=== PATIENT | female | born 1975 | race Hispanic/Latino ===

== ENCOUNTER 2020-05-10 17:46 | Emergency (ER) | payer SELFPAY ==
[2020-05-10 18:23] VITALS: BP 133/89
[2020-05-10] MEDS ORDERED: IBUPROFEN 600 MG TAB PO ONE (19:13)
--- NOTE | 2020-05-10 19:14 | Event Note ---
ED Screening Note Date of service: 05/10/20 Time: 19:13 ED Screening Note: 44-year-old female presents to the emergency room complaining of right ankle left hip and lower back pain status post fall today. Patient has had a hysterectomy This initial assessment/diagnostic orders/clinical plan/treatment(s) is/are subject to change based on patients health status, clinical progression and re- assessment by fellow clinical providers in the ED. Further treatment and workup at subsequent clinical providers discretion. Patient/guardian urged not to elope from the ED as their condition may be serious if not clinically assessed and managed. Initial orders include:
--- NOTE | 2020-05-10 20:19 | XRay Report ---
RIGHT ANKLE 3 VIEWS INDICATION / CLINICAL INFORMATION: rt injury COMPARISON: None available. FINDINGS: BONES / JOINT(S): No acute fracture or subluxation. No significant arthritis. SOFT TISSUES: There is soft tissue swelling over the lateral malleolus. ADDITIONAL FINDINGS: None. Signer Name: Ziyad Bell MD Signed: 05/10/2020 8:15 PM Workstation Name: [id number]
--- NOTE | 2020-05-10 20:19 | XRay Report ---
LEFT HIP 2 VIEWS INDICATION / CLINICAL INFORMATION: left hip pain COMPARISON: None available. FINDINGS: BONES / JOINT(S): No acute fracture or subluxation. No significant arthritis. SOFT TISSUES: No significant abnormality. ADDITIONAL FINDINGS: None. Signer Name: Ziyad Bell MD Signed: 05/10/2020 8:14 PM Workstation Name: [id number]
--- NOTE | 2020-05-10 20:20 | XRay Report ---
LUMBAR SPINE 3 VIEWS INDICATION: fall back pain COMPARISON: None. FINDINGS: There is no fracture, subluxation, or other acute radiographic abnormality of the lumbar spine. Signer Name: Ziyad Bell MD Signed: 05/10/2020 8:16 PM Workstation Name: [id number]
--- NOTE | 2020-05-10 21:17 | Emergency Department Report ---
ED Fall HPI - General Chief Complaint: Fall Stated Complaint: RT ANKLE Source: patient Mode of arrival: Wheelchair - History of Present Illness Initial Comments: 44-year-old female presents to the emergency room complaining of right ankle left hip and lower back pain status post fall today. Patient has had a hysterectomy -: This afternoon Fall From: standing When Fall Occurred: 1-3 hours [facility]OR OF [facility] C[facility] Loss of Consciousness: none Prolonged Down Time?: no Symptoms Prior to Fall: none Location: back Location - Extremities: Left: Thigh, Right: Ankle Severity scale (0 -10): 8 Quality: aching Associated Symptoms: denies - Related Data Previous Rx's Medication Instructions Recorded Last Taken Type Ibuprofen [Motrin 600 MG tab] 600 mg PO Q8H PRN #30 tablet 05/10/20 Unknown Rx Allergies Allergy/AdvReac Type Severity Reaction Status Date / Time Sulfa (Sulfonamide Allergy Unknown Verified 05/10/20 18:20 Antibiotics) ED Review of Systems ROS: Stated complaint: RT ANKLE Other details as noted in HPI ED Past Medical Hx - Medications Home Medications: Home Medications Medication Instructions Recorded Confirmed Last Taken Type Ibuprofen [Motrin 600 MG tab] 600 mg PO Q8H PRN #30 tablet 05/10/20 Unknown Rx ED Physical Exam - General Limitations: No Limitations ED Course Vital Signs 05/10/20 05/10/20 18:21 19:20 Temperature 97.9 F Pulse Rate 91 H Respiratory 20 18 Rate Blood Pressure 133/89 [Right] O2 Sat by Pulse 97 Oximetry ED Medical Decision Making - Radiology Data Radiology results: report reviewed Patient: ALYSON PHILIPPE MR#: [id number] : 1975 Acct:[id number] Age/Sex: 44 / F ADM Date: 05/10/20 Loc: ED Attending Dr: Ordering Physician: KATHRINE HIGHTOWER Date of Service: 05/10/20 Procedure(s): XR spine lumbosacral 2-3V Accession Number(s): [id number] cc: KATHRINE HIGHTOWER Fluoro Time In Minutes: LUMBAR SPINE 3 VIEWS INDICATION: fall back pain COMPARISON: None. FINDINGS: There is no fracture, subluxation, or other acute radiographic abnormality of the lumbar spine. Signer Name: Zyiad Bell MD Signed: 05/10/2020 8:16 PM Workstation Name: [id number] Transcribed By: Dictated By: Ziyad Bell MD Electronically Authenticated By: Ziyad Bell MD Signed Date/Time: 05/10/202015 DD/ 14 TD/TT: Patient: ALYSON PHILIPPE MR#: [id number] : 1975 Acct:[id number] Age/Sex: 44 / F ADM Date: 05/10/20 Loc: ED Attending Dr: Ordering Physician: KATHRINE HIGHTOWER Date of Service: 05/10/20 Procedure(s): XR hip 2-3V LT Accession Number(s): [id number] cc: KATHRINE HIGHTOWER Fluoro Time In Minutes: LEFT HIP 2 VIEWS INDICATION / CLINICAL INFORMATION: left hip pain COMPARISON: None available. FINDINGS: BONES / JOINT(S): No acute fracture or subluxation. No significant arthritis. SOFT TISSUES: No significant abnormality. ADDITIONAL FINDINGS: None. Signer Name: Ziyad Bell MD Signed: 05/10/2020 8:14 PM Workstation Name: [id number] Transcribed By: Dictated By: Ziyad Bell MD Electronically Authenticated By: Ziyad Bell MD Signed Date/Time: 05/10/202013 DD/ 13 TD/TT: Patient: ALYSON PHILIPPE MR#: [id number] : 1975 Acct:[id number] Age/Sex: 44 / F ADM Date: 05/10/20 Loc: ED Attending Dr: Ordering Physician: KATHRINE HIGHTOWER Date of Service: 05/10/20 Procedure(s): XR ankle 3+V RT Accession Number(s): [id number] cc: KATHRINE HIGHTOWER Fluoro Time In Minutes: RIGHT ANKLE 3 VIEWS INDICATION / CLINICAL INFORMATION: rt injury COMPARISON: None available. FINDINGS: BONES / JOINT(S): No acute fracture or subluxation. No significant arthritis. SOFT TISSUES: There is soft tissue swelling over the lateral malleolus. ADDITIONAL FINDINGS: None. Signer Name: Ziyad Bell MD Signed: 05/10/2020 8:15 PM Workstation Name: [id number] Transcribed By: SS Dictated By: Ziyad Bell MD Electronically Authenticated By: Ziyad Bell MD Signed Date/Time: 05/10/202014 DD/ 13 TD/TT: Critical care attestation.: If time is entered above; I have spent that time in minutes in the direct care of this critically ill patient, excluding procedure time. ED Disposition Clinical Impression: Fall, Ankle sprain, Contusion of left hip, Lower thoracic back pain Disposition: DC- TO HOME OR SELFCARE Is pt being admited?: No Does the pt Need Aspirin: No Condition: Stable Additional Instructions: All x-rays were negative for any acute fractures or abnormalities. I recommend wear the stirrup use to crutches and follow-up with your primary care provider. You can take Tylenol or ibuprofen for pain management. Prescriptions: Ibuprofen [Motrin 600 MG tab] 600 mg PO Q8H PRN #30 tablet PRN Reason: Pain , Severe (7-10) Referrals: PANKAJ SANDERSON MD [Staff Physician] - 3-5 Days
== END 2020-05-10 22:17 | disposition home or self-care (01) ==
LOC: ED 17:46
DX: S93.401A Sprain of unspecified ligament of right ankle, initial encounter (principal); S70.02XA Contusion of left hip, initial encounter; M54.6 Pain in thoracic spine; Z79.1 Long term (current) use of non-steroidal anti-inflammatories (NSAID); W05.0XXA Fall from non-moving wheelchair, initial encounter; Y93.89 Activity, other specified; Y92.89 Other specified places as the place of occurrence of the external cause; Y99.8 Other external cause status
CPT/HCPCS: 72100; 99283